=== PATIENT | male | born 2000 | race Two or more races ===

== ENCOUNTER 2023-09-27 17:02 | Emergency (ER) | payer OTHER ==
[~2023-09-27] VITALS: Ht 182.9 cm; Wt 54.5 kg
[2023-09-27] MEDS: ONDANSETRON HCL 4 MG/2 ML VIAL IV ONE (18:36)
[2023-09-27] MEDS: SODIUM CHLORIDE 0.9% 2,000 ML IV ONE (18:37)
[2023-09-27 19:21] LABS: Urine Bacteria NONE SEEN /hpf (None Seen); Urine Blood Negative /uL (Negative); Urine Clarity Clear (Clear); Urine Color Yellow (Yellow); Urine Protein, UAD TRACE (Negative); Urine Specific Gravity 1.024 (1.001-1.035); Urine Urobilinogen Normal (Negative); Urine WBC 6 /hpf (0 - 3); Urine pH 7.5 (5.0-8.0)
[2023-09-27 19:46] LABS: Basophils # (auto) 0 10 ^3/uL (0-0.2); Basophils % (auto) 0.2 % (0.0-2.0); Eosinophils # (auto) 0 10 ^3/uL (0-0.8); Hematocrit 42.8 % (41.0-53.0); Hemoglobin 14.2 g/dL (13.5-17.5); Lymphocytes # (auto) 1.1 10 ^3/uL (0.4-5.4); Lymphocytes % (auto) 9.4 % (10.0-50.0); Mean Corpuscular Hemoglobin 29.3 pg (28.0-32.0); Mean Corpuscular Hgb Conc. 33.1 g/dL (32.0-36.0); Mean Corpuscular Volume 88.4 fL (80.0-100.0); Monocytes % (auto) 8.3 % (0.0-12.0); Neutrophils # (auto) 10.1 10 ^3/uL (1.6-8.6); Neutrophils % (auto) 82.1 % (37.0-80.0); Red Blood Cells 4.84 10^6/uL (4.5-5.90); White Blood Cell 12.2 10^3/uL (4.4-10.8)
[2023-09-27 19:57] LABS: Alanine Aminotransferase 18 U/L (7-40); Albumin 4.5 g/dL (3.2-4.8); Alkaline Phosphatase 66 U/L (46-116); Anion Gap 7 (5-15); Aspartate Aminotransferase 18 U/L (13-40); BUN/Creatinine Ratio 15.3 (10.0-20.0); Bilirubin, Total 0.5 mg/dL (0.2-1.0); Blood Urea Nitrogen 13 mg/dL (9-23); Calcium 8.7 mg/dL (8.7-10.4); Carbon Dioxide 25 mmol/L (20-30); Chloride 108 mmol/L (98-107); Glucose 92 mg/dL (74-106); Lipase 40 U/L (12-53); Potassium 3.1 mmol/L (3.5-5.1); Sodium 140 mmol/L (136-145); Total Protein 7.1 g/dL (5.7-8.2)
[2023-09-27] MEDS ORDERED: ZOFR4T PO (20:14)
[2023-09-27] MEDS ORDERED: DICY10CA PO (20:14)
[2023-09-27] MEDS: POTASSIUM CHL 20 Meq TABLET PO ONE (20:29)
[2023-09-27] MEDS: DICYCLOMINE HCL (10MG/ML) 2 ML AMPULE IM ONE (20:29)
[2023-09-27 20:37] VITALS: BP 117/62; PULSE 63; RESP 18; TEMP 98.6; O2SAT 99
== END 2023-09-27 20:38 | disposition home or self-care (01) ==
LOC: EDBD 17:02 → ER 17:02
DX: E87.6 Hypokalemia (principal); E86.0 Dehydration; R10.31 Right lower quadrant pain; R10.32 Left lower quadrant pain; R11.2 Nausea with vomiting, unspecified; R19.7 Diarrhea, unspecified; Z88.8 Allergy status to other drugs, medicaments and biological substances; Z79.899 Other long term (current) drug therapy
CPT/HCPCS: 36415; 74176; 80053; 81001; 83690; 85025; 96361; 96374; 99285; J2405; J7030